=== PATIENT | male | born 1985 | race Caucasian/White ===

== ENCOUNTER → 2021-09-16 | Outpatient (CLI) | payer OTHER | LOC: COL.RAD 09:56 | DX: R06.02 Shortness of breath (principal) | CPT/HCPCS: Q9967 ==

== ENCOUNTER → 2023-06-26 | Outpatient (CLI) | payer OTHER | LOC: COL.RAD 08:38 | DX: R91.1 Solitary pulmonary nodule (principal); J45.40 Moderate persistent asthma, uncomplicated ==